=== PATIENT | male | born 1975 | race Caucasian/White ===

== ENCOUNTER 2018-12-25 08:01 | Emergency (ER) | payer OTHER ==
[~2018-12-25] VITALS: Ht 167.6 cm; Wt 75.3 kg
[~2018-12-25 08:01] MED LIST: MOTRIN600 MG PO; ORPH100T PO; PEPCID20 MG PO
== END 2018-12-25 10:16 | disposition home or self-care (01) ==
LOC: ER 08:01
DX: M54.41 Lumbago with sciatica, right side (principal)

== ENCOUNTER 2020-06-11 08:41 | Emergency (ER) | payer OTHER ==
[~2020-06-11] VITALS: Ht 165.1 cm; Wt 86.2 kg
[2020-06-11] MEDS ORDERED: KETO10TA2 PO (13:22)
== END 2020-06-11 13:37 | disposition home or self-care (01) ==
LOC: ER 08:41
DX: S50.01XA Contusion of right elbow, initial encounter (principal); M79.621 Pain in right upper arm; Y04.2XXA Assault by strike against or bumped into by another person, initial encounter; Y93.89 Activity, other specified; Y92.69 Other specified industrial and construction area as the place of occurrence of the external cause; Y99.8 Other external cause status

== ENCOUNTER 2020-10-21 08:29 | Emergency (ER) | payer OTHER ==
[~2020-10-21] VITALS: Ht 162.6 cm; Wt 81.6 kg
[~2020-10-21 08:29] MED LIST changes: +KETO10TA2 PO
== END 2020-10-21 10:22 | disposition home or self-care (01) ==
LOC: ER 08:29
DX: H93.8X1 Other specified disorders of right ear (principal)